=== PATIENT | female | born 1950 | race Caucasian/White ===

== ENCOUNTER 2020-07-01 11:16 | Emergency (ER) | payer MEDICARE, SELFPAY ==
[2020-07-01 11:30] VITALS: BP 153/89; PULSE 100; RESP 16; TEMP 36.8; O2SAT 99
--- NOTE | 2020-07-01 11:34 | ED.SKABFB ---
HPI - Skin/Abscess/Foreign Bdy General Chief complaint: Skin/Abscess/Foreign Body Stated complaint: Bump on L arm Time Seen by Provider: 07/01/20 11:34 Source: patient Mode of arrival: ambulatory Limitations: no limitations History of Present Illness HPI narrative: Yanet Carl is a 70-year-old female with a PMH of hypertension high cholesterol who comes to [facility] with a lesion to her right lower dorsal forearm that is hard nodule lesion. Measures 2 x 2, not tender to touch, bleed and does not drain She has appoint with a shot bagger on July 18 Related Data Home Medications Medication Instructions Recorded Confirmed atorvastatin 07/01/20 losartan-hydrochlorothiazide 07/01/20 oxybutynin 07/01/20 Allergies Allergy/AdvReac Type Severity Reaction Status Date / Time Sulfa (Sulfonamide Allergy Unknown Verified 07/01/20 11:30 Antibiotics) Review of Systems Review of Systems: Narrative: CONSTITUTIONAL: Denies fever, chills, sweats. EYES: Denies visual changes, redness, discharge. ENT: Denies rhinorrhea, congestion, sore throat, otalgia. CARDIOVASCULAR: Denies chest pain, palpitations, edema. RESPIRATORY: Denies dyspnea, wheezing, cough GASTROINTESTINAL: Denies abdominal pain, nausea, vomiting, diarrhea. GENITOURINARY: Denies dysuria, hematuria, abnormal discharge SKIN: Denies rash or itching. Skin lesion to right dorsal forearm NEUROLOGIC: Denies numbness, or focal weakness. PSYCHIATRIC: Denies anxiety or depression. [facility] Past Medical History Medical History High cholesterol Hypertension Family History Family History Other Heart disease Hypertension Social History Social History (Updated 07/01/20 @ 11:41 by Daija Zhou CNP) Smoking status: Never smoker Alcohol intake: current Comments At time of signature, I agree with nursing past medical, surgical, social and family history. There is no relevant family history pertinent to the presenting complaint. Exam Narrative: Exam Narrative: GENERAL: This is a well-nourished, well-developed patient, in mild distress. HEAD: normocephalic, atraumatic. EYES: Sclera clear/white. Vision is grossly intact. EARS: External ears normal, Hearing grossly intact. NOSE: External nose normal without nasal discharge, nares without redness, no rhinorrhea. THROAT: Mucous membranes moist, NECK: Neck supple, non-tender CARDIOVASCULAR: Regular rate and rhythm without murmurs, gallops, or rubs. RESPIRATORY: Clear to auscultation. Breath sounds equal bilaterally. No wheezes, rales, or rhonchi. GASTROINTESTINAL: Abdomen soft, non-tender, SKIN: warm, intact with 2 x 2 nontender nonindurated solid and mobile nodule on the dorsal side of the distal right forearm, has red border NEURO: awake, alert, and oriented to person, place and time. There were no obvious focal neurologic abnormalities. Steady gait EXTREMITIES: Normal range of motion. BACK: Nontender without deformity Course Course Emergency Course: Patient comes to [facility] for evaluation of the lesion of her lower right forearm She has an appointment with dermatology on July 18 Discussed my discomfort with trying to remove something about large this environment without capability of follow-up and biopsy We will give her prescription for Keflex to see if it changes the shape or size of the lesion- Vital Signs Vital signs: Vital Signs Temperature 98.3 F 07/01/20 11:30 Pulse Rate 100 07/01/20 11:30 Respiratory Rate 16 07/01/20 11:30 Blood Pressure 153/89 H 07/01/20 11:30 Pulse Oximetry 99 07/01/20 11:30 Temperature 98.3 F 07/01/20 11:30 Pulse Rate 100 07/01/20 11:30 Respiratory Rate 16 07/01/20 11:30 Blood Pressure 153/89 H 07/01/20 11:30 Pulse Oximetry 99 07/01/20 11:30 MDM - Skin/Abscess/Foreign Bdy Differential Diagnosis Differential jennifer
== END 2020-07-01 11:53 | disposition home or self-care (01) ==
PROVIDERS: Emergency Provider Nurse Practitioner
DX: L98.9 Disorder of the skin and subcutaneous tissue, unspecified (principal); E78.00 Pure hypercholesterolemia, unspecified; I10 Essential (primary) hypertension
CPT/HCPCS: 99213; G0463